=== PATIENT | male | born 1955 | race Caucasian/White ===

== ENCOUNTER 2023-03-30 09:42 | Day surgery (SDC) | payer MEDICARE, BC ==
[~2023-03-30 09:42] MED LIST: Lactated Ringers 1,000 ML IV SCH; Lidocaine 1%/Sod Bicarbonate in NS 8.4% 1 ML Syringe IDERM PRN; Sodium Chloride 0.9% 10 ML Syringe FLUSH PRN; Sodium Chloride 0.9% 10 ML Syringe FLUSH SCH
[2023-03-30] MEDS ORDERED: Lactated Ringers 1,000 ML ONE (09:50)
[2023-03-30] MEDS ORDERED: fentaNYL 250 MCG/5 ML SDV ONE (09:50)
[2023-03-30] MEDS ORDERED: Ondansetron 4 MG/2 ML SDV ONE (09:50)
[2023-03-30] MEDS ORDERED: Midazolam 1 MG/ML 2 ML SDV ONE (09:50)
[2023-03-30] MEDS ORDERED: Propofol 200 MG/20 ML SDV ONE (09:50)
== END 2023-03-30 12:24 | disposition home or self-care (01) ==
LOC: JD.SDS 09:42
PROVIDERS: ATTEND Surgery
DX: D12.5 Benign neoplasm of sigmoid colon (principal); K57.30 Diverticulosis of large intestine without perforation or abscess without bleeding; K64.8 Other hemorrhoids; M19.90 Unspecified osteoarthritis, unspecified site; I25.10 Atherosclerotic heart disease of native coronary artery without angina pectoris; I10 Essential (primary) hypertension; E78.00 Pure hypercholesterolemia, unspecified; N40.0 Benign prostatic hyperplasia without lower urinary tract symptoms; E11.9 Type 2 diabetes mellitus without complications; Z79.82 Long term (current) use of aspirin; Z79.899 Other long term (current) drug therapy; Z87.891 Personal history of nicotine dependence; Z86.010 Personal history of colon polyps
CPT/HCPCS: 00811; J2250; J2405; J2704; J3010; J7120